=== PATIENT | male | born 1980 | race Two or more races ===

== ENCOUNTER 2024-06-04 15:02 | Emergency (ER) | payer BC ==
[~2024-06-04] VITALS: Ht 175.3 cm; Wt 59.0 kg
[2024-06-04] MEDS: IV NS 1000 ML 1,000 ML IV ONE (15:59)
[2024-06-04] MEDS: METOCLOPRAMIDE HCL 10 MG/2 ML VIAL IV ONE (16:05)
[2024-06-04 16:12] LABS: BASOPHILS # (AUTO) 0.1 K/UL (0.0-0.2); BASOPHILS % (AUTO) 0.9 % (0.0-2.0); EOSINOPHILS # (AUTO) 0.3 K/uL (0.0-0.7); EOSINOPHILS % (AUTO) 3.1 % (0.0-7.0); HEMATOCRIT 45.2 % (36.7-47.1); HEMOGLOBIN 15.6 g/dL (12.5-16.3); LYMPHOCYTES # (AUTO) 1.6 K/uL (0.8-4.8); LYMPHOCYTES % (AUTO) 19.4 % (20.5-51.5); MEAN CORPUSCULAR HEMOGLOBIN 33.3 uug (23.8-33.4); MEAN CORPUSCULAR HGB CONC 35 g/dL (32.5-36.3); MEAN CORPUSCULAR VOLUME 96.8 fL (73.0-96.2); MONOCYTES # (AUTO) 0.5 K/uL (0.1-1.30); MONOCYTES % (AUTO) 6.6 % (0.0-11.0); NEUTROPHILS # (AUTO) 5.6 K/uL (1.8-8.9); PLATELET COUNT (AUTO) 306 K/uL (152-348); RED BLOOD CELL COUNT(AUTO) 4.67 MIL/uL (4.06-5.63); RED CELL DISTRIBUTION WIDTH 12.5 % (12.1-16.2)
[2024-06-04 16:18] LABS: DIFFERENTIAL COMMENT 1
[2024-06-04 16:28] LABS: ALBUMIN 4.3 g/dL (3.4-5.0); BILIRUBIN,DIRECT 0.3 mg/dL (0.0-0.2); BILIRUBIN,TOTAL 1.6 mg/dL (0.2-1.0); TOTAL PROTEIN, SERUM 8.1 g/dL (6.4-8.2)
[2024-06-04] MEDS ORDERED: PANTOPRAZOLE SODIUM 40 MG VIAL ONE (16:50)
[2024-06-04] MEDS: PANTOPRAZOLE SODIUM IV 80 MG in IV DEXTROSE 5% 100 ML IV ONE (17:18)
[2024-06-04] MEDS ORDERED: PANT20TA2 PO (17:27)
[2024-06-04 18:39] LABS: HEMATOCRIT 42.4 % (36.7-47.1); HEMOGLOBIN 14.3 g/dL (12.5-16.3)
[2024-06-04 18:53] LABS: CALCIUM 9.2 mg/dL (8.5-10.1); CREATININE 0.9 mg/dL (0.6-1.3)
[2024-06-04 19:40] VITALS: BP 142/92; O2SAT 99
== END 2024-06-04 19:41 | disposition home or self-care (01) ==
LOC: ER 15:02
DX: K92.0 Hematemesis (principal)
CPT/HCPCS: 99284; 96365; 96361; 96366; 96375; 80076; 80048; 85018; 85025; 85610; 85730; 86850 ×2; 86900; 86901; 36415; 83605; J2765; J2470; J7040; A4606; A4663